=== PATIENT | female | born 1965 | race Caucasian/White ===

== ENCOUNTER 2020-04-17 18:18 | Emergency (ER) | payer BC ==
[~2020-04-17] VITALS: Ht 160 cm; Wt 74.4 kg
--- NOTE | 2020-04-17 18:54 | NUR ---
[employer] NOTIFIED OF ORDERED DOPPLER
[2020-04-17 19:06] LABS: BASOPHILS % 0.7 % (0.0-1.0); EOSINOPHILS % 0.7 % (0.0-6.0); HEMATOCRIT 38.6 % (34.2-44.1); LYMPHOCYTES # (AUTO) 2.5 (1.0-3.2); LYMPHOCYTES % 47.6 % (18.0-39.1); MEAN CORPUSCULAR HEMOGLOBIN 29.7 pg (28-32); MEAN CORPUSCULAR HGB CONC 33.7 g/dL (31-35); MEAN CORPUSCULAR VOLUME 88.3 fL (81-99); MONOCYTES # (AUTO) 0.5 (0.2-0.8); MONOCYTES % 9.9 % (4.4-11.3); NEUTROPHILS # (AUTO) 2.2 (2.1-6.9); NEUTROPHILS % 40.7 % (38.7-80.0); PLATELET COUNT 252 x10e3/uL (140-360); RED BLOOD COUNT 4.37 x10e6/uL (3.6-5.1); RED CELL DISTRIBUTION WIDTH 12.3 % (11.7-14.4)
[2020-04-17 19:17] LABS: INR 0.95; PROTHROMBIN TIME 13.2 seconds (11.9-14.5)
[2020-04-17 19:18] LABS: PARTIAL THROMBOPLASTIN TIME 31.5 seconds (23.8-35.5)
--- NOTE | 2020-04-17 19:19 | Emergency Department Note ---
History of Present Illnes History of Present Illness Chief Complaint: General Medicine Complaints History of Present Illness This is a 55 year old female with left leg pain this AM and dizziness prior to arrival. Prior h/o of DVT and PE . Historian: Patient Arrival Mode: Car Radiation: Reports extremity Severity: moderate Onset quality: sudden Duration (how long): day(s) (1) Timing of current episode: constant Progression: unchanged Chronicity: new Context: Reports recent immobilization Relieving factors: rest Exacerbating factors: movement Associated symptoms: Reports denies other symptoms Treatments prior to arrival: none Past Medical/Family History Physician Review I have reviewed the patient's past medical and family history. Any updates have been documented here. Past Medical History Recent Fever: No Clinical Suspicion of Infectio: No New/Unexplained Change in Ment: No Other Medical History: PE DVT FACTOR V LIDIN Past Surgical History: Tubal Ligation Other Surgery: BREAST AUGMENTATION REPLACE DEFECTIVE VALVE FOR BREAST IMPLANT Social History Smoking Cessation: Never Smoker Alcohol Use: None Any Illegal Drug Use: No Other Last Tetanus: UTD Review of Systems Review of Systems Constitutional: Reports no symptoms EENTM: Reports no symptoms Cardiovascular: Reports no symptoms Respiratory: Reports no symptoms Gastrointestinal: Reports no symptoms Genitourinary: Reports no symptoms Musculoskeletal: Reports joint pain (L knee), Reports muscle pain (l calf) Integumentary: Reports no symptoms Neurological: Reports no symptoms Psychological: Reports no symptoms Endocrine: Reports no symptoms Hematological/Lymphatic: Reports no symptoms Physical Exam Related Data Allergies: Coded Allergies: Penicillins (Verified Allergy, Unknown, 04/17/20) albuterol (Verified Allergy, Unknown, 04/17/20) tramadol (Verified Allergy, Unknown, 04/17/20) Triage Vital Signs Vital Signs Date Time Temp Pulse Resp B/P (MAP) Pulse Ox O2 Delivery O2 Flow Rate FiO2 04/17/20 18:37 96.7 69 18 142/79 100 Vital signs reviewed: Yes Physical Exam CONSTITUTIONAL Constitutional: Present well-developed, Present well-nourished HENT HENT: Present normocephalic, Present atraumatic, Present oropharynx clear/moist, Present nose normal HENT L/R: Present left ext ear normal, Present right ext ear normal EYES Eyes: Reports PERRL, Reports conjunctivae normal NECK Neck: Present ROM normal PULMONARY Pulmonary: Present effort normal, Present breath sounds normal CARDIOVASCULAR Cardiovascular: Present regular rhythm, Present heart sounds normal, Present capillary refill normal, Present normal rate GASTROINTESTINAL Abdominal: Present soft, Present nontender, Present bowel sounds normal GENITOURINARY Genitourinary: Present exam deferred SKIN Skin: Present warm, Present dry MUSCULOSKELETAL Musculoskeletal: Present tenderness (Left knee/ calf pain) NEUROLOGICAL Neurological: Present alert, Present oriented x 3, Present no gross motor or sensory deficits PSYCHOLOGICAL Psychological: Present mood/affect normal, Present judgement normal Results Laboratory Result Diagram: 04/17/20 1850 Laboratory Laboratory Tests Test 04/17/20 18:50 White Blood Count 5.34 x10e3/uL (4.8-10.8) Red Blood Count 4.37 x10e6/uL (3.6-5.1) Hemoglobin 13.0 g/dL (12.0-16.0) Hematocrit 38.6 % (34.2-44.1) Mean Corpuscular Volume 88.3 fL (81-99) Mean Corpuscular Hemoglobin 29.7 pg (28-32) Mean Corpuscular Hemoglobin Concent 33.7 g/dL (31-35) Red Cell Distribution Width 12.3 % (11.7-14.4) Platelet Count 252 x10e3/uL (140-360) Neutrophils (%) (Auto) 40.7 % (38.7-80.0) Lymphocytes (%) (Auto) 47.6 % (18.0-39.1) Monocytes (%) (Auto) 9.9 % (4.4-11.3) Eosinophils (%) (Auto) 0.7 % (0.0-6.0) Basophils (%) (Auto) 0.7 % (0.0-1.0) Neutrophils # (Auto) 2.2 (2.1-6.9) Lymphocytes # (Auto) 2.5 (1.0-3.2) Monocytes # (Auto) 0.5 (0.2-0.8) Eosinophils # (Auto) 0.0 (0.0-0.4) Basophils # (Auto) 0.0 (0.0-0.1) Absolute Immature Granulocyte (auto 0.02 x10e3/uL (0-0.1) Imaging Imaging results reviewed: Yes Impressions [address] [place] [address] Patient Name: REYNA NGUYEN MR #: [id number] : 1965 Age/Sex: 55/F Req #: [id number] Adm Physician: Ordered by: AARON MANJARREZ DO Report #: [id number] Location: ER Room/Bed: Procedure: [id number] CT/CT CHEST W Exam Date: 04/17/20 Exam Time: 1939 REPORT STATUS: Signed EXAM: CT Chest WITH contrast (PE protocol) 04/17/2020 7:40 PM INDICATION: Dizziness COMPARISON: None TECHNIQUE: Chest was scanned utilizing a multidetector helical scanner from the lung apex through the level of the diaphragm after administration of IV contrast. Thin section reconstructions were obtained with special concentration on the pulmonary arteries. Coronal and sagittal reformations were obtained. Pulmonary embolism protocol was performed. IV CONTRAST: 100 mL of Isovue 370 COMPLICATIONS: None RADIATION DOSE: Total DLP: 533 mGy*cm Estimated effective dose: (DLP x 0.014 x size factor) mSv CTDIvol has been reviewed. It is below the limits set by the Radiation Protocol Committee (RPC). Dose modulation, iterative reconstruction, and/or weight based adjustment of the mA/kV was utilized to reduce the radiation dose to as low as reasonably achievable. FINDINGS: LINES/ TUBES: None. LUNGS AND AIRWAYS: No pulmonary arterial filling defects. The lungs are unremarkable. Airways are normal. PLEURA: The pleural spaces are clear. HEART AND MEDIASTINUM: The thyroid gland is normal. No mediastinal, hilar or axillary lymphadenopathy. The heart is normal in size. There is no pericardial effusion. Minimal arterial calcifications. Aorta and pulmonary artery diameters are within normal limits. UPPER ABDOMEN: Unremarkable. BONES: Degenerative changes. SOFT TISSUES: Bilateral breast implant devices.. IMPRESSION: No pulmonary embolus. No acute CT cardiopulmonary abnormality. Signed by: Tarun Murillo DO on 04/17/2020 9:25 PM Dictated By: TARUN MURILLO DO 24 Transcribed By: YOKASTA on 04/17/202124 COPY TO: AARON MANJARREZ DO~ [place] [address] Patient Name: REYNA NGUYEN MR #: [id number] : 1965 Age/Sex: 55/F Req #: [id number] Adm Physician: Ordered by: AARON MANJARREZ DO Report #: [id number] Location: ER Room/Bed: Procedure: [id number] DX/KNEE LEFT THREE VIEWS Exam Date: 04/17/20 Exam Time: 2139 REPORT STATUS: Signed X-ray x-ray left knee 3 views HISTORY: Pain. COMPARISON: None available. FINDINGS: Bones: No acute displaced fracture. Osseous alignment is within normal limits. Joints: The joint spaces are well-maintained. Soft tissues: The soft tissues appear unremarkable. IMPRESSION: No acute radiographic osseous abnormality. Signed by: Tarun Murillo DO on 04/17/2020 10:41 PM Dictated By: TARUN MURILLO DO 40 Transcribed By: YOKASTA on 04/17/202240 COPY TO: AARON MANJARREZ DO~ Diagnostics Tests Diagnostic test(s) reviewed: Yes Diagnostic comments Venous Duplex b/l : neg for DVT Assessment & Plan Medical Decision Making MDM 55 yof with prior h/o of DVT and PE with PMH hypercoagulable state. Venous Duplex and CTA chest ordered to r/o DVT and PE respectively. L knee xray ordered for consideration of possible fx, dislocation, or inflammatory arthropathy. Plan to discharge to home with Rx Tylenol #3 Assessment & Plan Final Impression: (1) Left leg pain Depart Disposition: HOME, SELF-CARE Last Vital Signs Date Time Temp Pulse Resp B/P (MAP) Pulse Ox O2 Delivery O2 Flow Rate FiO2 04/17/20 18:37 96.7 69 18 142/79 100 Medications in the ED Morphine Sulfate 4 mg ONCE STAT IV ; Start 04/17/20 at 20:15; Stop 04/17/20 at 21:20; Status DC Ondansetron HCl 4 mg NOW STAT IV ; Start 04/17/20 at 20:15; Stop 04/17/20 at 21:20; Status DC AARON MANJARREZ DO Apr 17, 2020 19:19
[2020-04-17 19:27] LABS: ALANINE AMINOTRANSFERASE 19 IU/L (0-55); ALBUMIN 4.1 g/dL (3.5-5.0); ALBUMIN/GLOBULIN RATIO 1.3 (0.8-2.0); ALKALINE PHOSPHATASE 60 IU/L (40-150); ANION GAP 12.5 mmol/L (8-16); BLOOD UREA NITROGEN 13 mg/dL (7-26); BUN/CREATININE RATIO 16 (6-25); CALCIUM 9.8 mg/dL (8.4-10.2); CARBON DIOXIDE 29 mmol/L (22-29); CHLORIDE 95 mmol/L (98-107); CREATINE KINASE 90 IU/L (29-168); EST GLOMERULAR FILTRATION RATE > 60 ML/MIN (60-); GLUCOSE 87 mg/dL (74-118); POTASSIUM 3.5 mmol/L (3.5-5.1); SODIUM 133 mmol/L (136-145)
[2020-04-17] MEDS ORDERED: MORPHINE SULFATE INJ 4 MG/ML INJ 1ML IV STA (20:15)
[2020-04-17] MEDS ORDERED: ONDANSETRON HCL INJ 2MG/ML 2ML 2 MG/ML VIAL IV STA (20:15)
--- NOTE | 2020-04-17 21:29 | Diagnostic Imaging Report ---
EXAM: CT Chest WITH contrast (PE protocol) 04/17/2020 7:40 PM INDICATION: Dizziness COMPARISON: None TECHNIQUE: Chest was scanned utilizing a multidetector helical scanner from the lung apex through the level of the diaphragm after administration of IV contrast. Thin section reconstructions were obtained with special concentration on the pulmonary arteries. Coronal and sagittal reformations were obtained. Pulmonary embolism protocol was performed. IV CONTRAST: 100 mL of Isovue 370 COMPLICATIONS: None RADIATION DOSE: Total DLP: 533 mGy*cm Estimated effective dose: (DLP x 0.014 x size factor) mSv CTDIvol has been reviewed. It is below the limits set by the Radiation Protocol Committee (RPC). Dose modulation, iterative reconstruction, and/or weight based adjustment of the mA/kV was utilized to reduce the radiation dose to as low as reasonably achievable. FINDINGS: LINES/ TUBES: None. LUNGS AND AIRWAYS: No pulmonary arterial filling defects. The lungs are unremarkable. Airways are normal. PLEURA: The pleural spaces are clear. HEART AND MEDIASTINUM: The thyroid gland is normal. No mediastinal, hilar or axillary lymphadenopathy. The heart is normal in size. There is no pericardial effusion. Minimal arterial calcifications. Aorta and pulmonary artery diameters are within normal limits. UPPER ABDOMEN: Unremarkable. BONES: Degenerative changes. SOFT TISSUES: Bilateral breast implant devices.. IMPRESSION: No pulmonary embolus. No acute CT cardiopulmonary abnormality. Signed by: Tarun Murillo DO on 04/17/2020 9:25 PM
[2020-04-17 22:37] VITALS: BP 111/78
--- NOTE | 2020-04-17 22:49 | Diagnostic Imaging Report ---
X-ray x-ray left knee 3 views HISTORY: Pain. COMPARISON: None available. FINDINGS: Bones: No acute displaced fracture. Osseous alignment is within normal limits. Joints: The joint spaces are well-maintained. Soft tissues: The soft tissues appear unremarkable. IMPRESSION: No acute radiographic osseous abnormality. Signed by: Tarun Murillo DO on 04/17/2020 10:41 PM
== END 2020-04-17 22:43 | disposition home or self-care (01) ==
LOC: ER 18:18
DX: M79.605 Pain in left leg (principal); M25.562 Pain in left knee; R42 Dizziness and giddiness; Z86.718 Personal history of other venous thrombosis and embolism
CPT/HCPCS: 36415; 71260; 80053; 82550; 82553; 84484; 85025; 85379; 85610; 85730; 93005; 93970; 99284